=== PATIENT | female | born 1980 ===

== ENCOUNTER 2024-09-06 07:45 | Day surgery (SDC) | payer OTHER ==
[2024-08-30 09:48] VITALS: BP 119/87
[2024-08-30 09:51] LABS: BASO % 0.6 % (0.1-1.2); EOS # 0.07 (0.04-0.54); HEMATOCRIT 42.5 % (34.1-44.9); HEMOGLOBIN 14.1 g/dL (11.2-15.7); LYMPH # 2.04 (1.18-3.74); LYMPH % 29.4 % (19.3-53.1); MEAN CORPUSCULAR HEMOGLOBIN 29.1 pg (25.6-32.2); MONO # 0.62 (0.24-0.82); MONO % 8.9 % (4.7-12.5); NEUT # 4.17 (1.56-6.13); PLATELET COUNT 289 K/uL (163-369); RED BLOOD COUNT 4.84 M/uL (3.93-5.22); RED CELL DISTRIBUTION WIDTH 12.8 % (11.6-14.4)
[2024-08-30 10:03] LABS: PH,URINE 5.5 (5.0-8.0); URINE APPEARANCE Clear; URINE BILIRRUBIN Negative (NEGATIVE); URINE BLOOD Negative; URINE COLOR Yellow; URINE GLUCOSE Negative (NEGATIVE); URINE KETONE Trace (NEGATIVE); URINE LEUKOCYTE Negative; URINE NITRATE Negative; URINE PROTEIN Negative (NEGATIVE); URINE UROBILINOGEN 0.2 E.U./dl
[2024-08-30 10:08] LABS: URINE BACTERIA 288.7 uL (0.0-1933); URINE EPITHELIAL CELLS 23.5 uL (0.0-38.8); URINE WBC 5.8 uL (0.0-23.2)
[2024-08-30 10:17] LABS: INR 0.99; PARTIAL THROMBOPLASTIN TIME 27.8 SECONDS (22.0-34.0); PROTHROMBIN TIME 10.8 SECONDS (9.0-11.5)
[2024-08-30 10:27] LABS: URINE CAST 0.29 uL (0.0-1.40); URINE RBC 0.7 uL (0.0-20.8)
[2024-08-30 11:04] LABS: BILIRUBIN TOTAL 0.4 mg/dL (0.3-1.2); CALCIUM 9.5 mg/dL (8.5-10.1); CREATININE SERUM 0.67 mg/dL (0.55-1.02); GFR 96.06; GLOBULINA 3.8 G/DL (2.4-3.5); POTASSIUM 3.91 mEq/L (3.5-5.1); TOTAL PROTEIN 7.8 gm/dL (6.4-8.2); TSH 0.646 uIU/mL (0.358-3.74)
[~2024-09-06] VITALS: Ht 162.6 cm; Wt 64.4 kg
[~2024-09-06 07:45] MED LIST: CRESTOR40 MG; HYDRODIURIL12.5 MG PO; MOUNJARO2.5 MG/0.5 SQ
[2024-09-06] MEDS ORDERED: CLINDAMYCIN PHOSPHATE 150 MG/ML (900mg) ONE (08:07)
[2024-09-06] MEDS ORDERED: PROMETHAZINE HCL 50 MG/ML AMPUL IM ONE (13:00)
[2024-09-06] MEDS ORDERED: MONODOX100 MG PO (13:00)
[2024-09-06] MEDS ORDERED: Tylenol #3 PO (13:00)
[2024-09-06] MEDS ORDERED: MORPHINE SULFATE 4 MG/ML VIAL IV PRN (13:00)
[2024-09-06] MEDS ORDERED: MORPHINE SULFATE 4 MG/ML VIAL IV ONE (15:40)
== END 2024-09-06 17:10 | disposition home or self-care (01) ==
LOC: CIR.AMB 07:45
PROVIDERS: ATTEND Obstetrics & Gynecology
DX: D25.0 Submucous leiomyoma of uterus (principal); N95.0 Postmenopausal bleeding; N84.0 Polyp of corpus uteri; Z88.6 Allergy status to analgesic agent; Z88.0 Allergy status to penicillin